=== PATIENT | male | born 1985 | race Caucasian/White ===

== ENCOUNTER 2017-07-19 19:59 | Emergency (ER) | payer OTHER ==
[~2017-07-19] VITALS: Ht 175.3 cm; Wt 87.7 kg
[~2017-07-19 19:59] MED LIST: ADVIL200 MG PO; METHADOSE40 MG PO; NOHOMEMEDS; PEN-VEE K,VEET500 MG PO; TRAMADOL HCL50 MG PO
[2017-07-19] MEDS ORDERED: PEN-VEE K,VEET500 MG PO (21:20)
[2017-07-19] MEDS ORDERED: TYLENOL WITH C1 EACH PO (21:20)
[2017-07-19] MEDS ORDERED: ZOFRAN ODT4 MG PO (21:20)
[2017-07-19 21:42] VITALS: BP 130/76
== END 2017-07-19 21:52 | disposition home or self-care (01) ==
LOC: EME 19:59
DX: K04.7 Periapical abscess without sinus (principal); F17.200 Nicotine dependence, unspecified, uncomplicated
CPT/HCPCS: 99281; 99284

== ENCOUNTER 2017-12-21 16:12 | Emergency (ER) | payer OTHER ==
[~2017-12-21] VITALS: Ht 182.9 cm; Wt 85.2 kg
[~2017-12-21 16:12] MED LIST changes: +TYLENOL WITH C1 EACH PO; +ZOFRAN ODT4 MG PO
[2017-12-21 18:20] LABS: BASOPHIL (%) 0.6 % (0-1); BASOPHIL COUNT 0.1 K/uL (0-0.1); EOSINOPHIL (%) 1.1 % (0-5); EOSINOPHIL COUNT 0.1 K/uL (0-0.3); HEMATOCRIT 39.2 % (38.0-50.0); IMMATURE GRANULOCYTE (%) 0.7 % (0.0-0.7); LYMPHOCYTE (%) 17.8 % (15-42); LYMPHOCYTE COUNT 2.2 K/uL (1.0-2.8); MCH 30.2 PG (29.0-34.0); MCHC 33.2 G/DL (30.0-36.0); MCV 91.2 FL (86-99); MONOCYTE (%) 10.7 % (3-12); MONOCYTE COUNT 1.3 K/uL (0-0.8); NEUTROPHIL (%) 69.1 % (45-76); NEUTROPHIL COUNT 8.5 K/uL (1.8-6.4); PLATELET COUNT 275 K/uL (156-360); RBC DIS.WIDTH-CV 14.1 % (11.8-14.6); RBC DIS.WIDTH-SD 47.4 % (39-53); WHITE BLOOD COUNT 12.3 K/uL (4.1-10.2)
[2017-12-21 18:44] LABS: CHLORIDE 100 MEQ/L (99-109); CREATININE 0.7 MG/DL (0.6-1.3); GFR ESTIMATE (CALCULATED) > 59 mL/min/ (58.99-99999); GLUCOSE 83 mg/dL (70-99); POTASSIUM 3.7 MEQ/L (3.7-5.4); SODIUM 137 MEQ/L (136-147); UREA NITROGEN (BUN) 9 mg/dL (9-23)
[2017-12-21] MEDS ORDERED: CEPHALEXIN500 M1 PO (21:10)
[2017-12-21] MEDS ORDERED: BACTRIM,SEPT1 TABLET PO (21:10)
[2017-12-21 21:59] VITALS: BP 130/74
== END 2017-12-21 22:00 | disposition home or self-care (01) ==
LOC: EME 16:12
PROVIDERS: Emergency Medicine
PROC: 0H97XZZ Drainage of Abdomen Skin, External Approach (ICD-10-PCS; principal; 2017-12-21)
DX: L02.211 Cutaneous abscess of abdominal wall (principal); L03.311 Cellulitis of abdominal wall; Z79.891 Long term (current) use of opiate analgesic; F17.200 Nicotine dependence, unspecified, uncomplicated
CPT/HCPCS: 74177; 80048; 83605; 85025; 87040; 87070; 87075; 87077; 87147; 87186; 87205; 99281; 99285

== ENCOUNTER 2018-04-04 16:17 | Emergency (ER) | payer OTHER ==
[~2018-04-04] VITALS: Ht 175.3 cm; Wt 89.9 kg
[~2018-04-04 16:17] MED LIST changes: +BACTRIM,SEPT1 TABLET PO; +CEPHALEXIN500 M1 PO
[2018-04-04] MEDS ORDERED: BENADRYL50 MG PO (17:44)
[2018-04-04 17:59] LABS: HEMATOCRIT 37.2 % (38.0-50.0); HEMOGLOBIN 12.4 G/DL (12.5-16.6); MCH 29.9 PG (29.0-34.0); MCHC 33.3 G/DL (30.0-36.0); MCV 89.6 FL (86-99); PLATELET COUNT 196 K/uL (156-360); RBC DIS.WIDTH-CV 13.8 % (11.8-14.6); RBC DIS.WIDTH-SD 44.8 % (39-53); RED BLOOD COUNT 4.15 M/uL (4.00-5.50); WHITE BLOOD COUNT 14.9 K/uL (4.1-10.2)
[2018-04-04 18:08] LABS: ALBUMIN 3.8 g/dL (3.2-4.8); CHLORIDE 105 mEq/L (99-109); POTASSIUM 3.2 mEq/L (3.7-5.4); SODIUM 141 mEq/L (136-147)
[2018-04-04 18:11] LABS: GLUCOSE 99 mg/dL (70-99); TOTAL PROTEIN 6.7 g/dL (6.4-8.3)
[2018-04-04 18:13] LABS: TOTAL BILIRUBIN 0.4 mg/dL (0.0-1.0)
[2018-04-04 18:14] LABS: ALKALINE PHOSPHATASE 63 IU/L (3-129); CREATININE 0.7 mg/dL (0.6-1.3); GFR ESTIMATE (CALCULATED) > 59 mL/min/ (58.99-99999)
[2018-04-04 18:15] LABS: UREA NITROGEN (BUN) 6 mg/dL (9-23)
[2018-04-04 18:16] LABS: AST (GOT) 14 IU/L (2-34)
[2018-04-04 18:17] LABS: ALT (GPT) 17 IU/L (3-49)
[2018-04-04] MEDS ORDERED: KEFLEX500 MG PO (18:29)
[2018-04-04] MEDS ORDERED: BACTRIM,SEPT1 TABLET PO (18:29)
[2018-04-04 19:34] VITALS: BP 121/85
== END 2018-04-04 19:35 | disposition home or self-care (01) ==
LOC: EME 16:17
PROVIDERS: Physician Assistant
PROC: 0H94XZZ Drainage of Neck Skin, External Approach (ICD-10-PCS; principal; 2018-04-04)
DX: L02.11 Cutaneous abscess of neck (principal); F11.90 Opioid use, unspecified, uncomplicated; F17.200 Nicotine dependence, unspecified, uncomplicated
CPT/HCPCS: 80053; 83605; 85027; 87040; 87070; 87075; 87077; 87147; 87186; 87205; 99281; 99284; J0696